=== PATIENT | male | born 1955 ===

== ENCOUNTER → 2024-02-15 | Outpatient (CLI) | payer MEDICARE, BC | END | disposition home or self-care (01) | LOC: LAB SHORT 15:01 → LAB 15:01 | DX: D04.4 Carcinoma in situ of skin of scalp and neck (principal); D04.5 Carcinoma in situ of skin of trunk | CPT/HCPCS: 88305 ==

== ENCOUNTER → 2024-09-13 | Outpatient (CLI) | payer MEDICARE, BC ==
[2024-09-15 15:57] LABS: HSV 1 SUBTYPE BY PCR Not Detected; HSV 2 SUBTYPE BY PCR Not Detected; HSV SUBTYPE SOURCE AURICULAR
== END | disposition home or self-care (01) ==
LOC: LAB 13:26 → LAB SHORT 13:26
PROVIDERS: Internal Medicine
DX: L08.9 Local infection of the skin and subcutaneous tissue, unspecified (principal)
CPT/HCPCS: 87070; 87077; 87147; 87186; 87205; 87529

== ENCOUNTER → 2025-03-06 | Outpatient (CLI) | payer MEDICARE, BC | LOC: LAB 13:00 → LAB SHORT 13:00 | DX: L08.0 Pyoderma (principal) | CPT/HCPCS: 87070; 87077; 87147; 87186; 87205 ==

== ENCOUNTER → 2025-06-22 | Outpatient (CLI) | payer MEDICARE, BC | LOC: LAB SHORT 12:05 → LAB 12:05 | DX: L08.0 Pyoderma (principal) | CPT/HCPCS: 87070; 87077; 87147; 87186; 87205 ==